=== PATIENT | male | born 1940 | race Caucasian/White ===

== ENCOUNTER → 2017-06-21 | Outpatient (CLI) | payer OTHER, MEDICARE | LOC: BMCIMAGING 09:48 | PROVIDERS: ATTEND Family Medicine | DX: M25.511 Pain in right shoulder (principal); M25.521 Pain in right elbow ==

== ENCOUNTER → 2017-06-30 | Outpatient (CLI) | payer OTHER, MEDICARE | LOC: FIMAGING 10:57 | PROVIDERS: ATTEND Orthopaedic Surgery Hand Surgery | DX: M75.121 Complete rotator cuff tear or rupture of right shoulder, not specified as traumatic (principal); M75.21 Bicipital tendinitis, right shoulder ==

== ENCOUNTER → 2018-05-29 | Outpatient (CLI) | payer OTHER, MEDICARE | LOC: BMCIMAGING 12:51 | PROVIDERS: ATTEND Emergency Medicine | DX: S90.852A Superficial foreign body, left foot, initial encounter (principal) ==

== ENCOUNTER 2018-07-30 10:27 | Emergency (ER) | payer OTHER, MEDICARE ==
--- NOTE | 2018-07-30 10:41 | EDPHY ---
H & P Time Seen by Provider: 07/30/18 10:37 HPI/ROS: CHIEF COMPLAINT: Abdominal pain and diarrhea HISTORY OF PRESENT ILLNESS: Patient was walking his dog today at 7:00 a.m. When he had sudden diarrhea, he actually did not make it to the bathroom in time. About 10 min later he developed lower abdominal pain on the left side. Moderate to severe, associated with nausea, no vomiting or fever. Not better or worse with anything. Symptoms moderate now. Went to urgent care and referred here. REVIEW OF SYSTEMS: Eye: no change in vision ENT: no sore throat Cardiac: no chest pain or syncope Pulmonary: no cough or SOB Abdomen: HPI Musculoskeletal: no back pain Skin: no rash Neuro: no headache Constitutional: no fever : no urinary symptoms A comprehensive 10 point review of systems is otherwise negative aside from elements mentioned in the history of present illness. PAST MEDICAL HISTORY: Includes hernia surgery Social history: Nonsmoker General Appearance: Alert and conversant, cooperative. Eyes: No scleral icterus. ENT, Mouth: Dry mucous membranes. Respiratory: Normal respiratory effort, breath sounds equal, lungs are clear to auscultation. Cardiovascular: Regular rate and rhythm. Gastrointestinal: Normal male , no hernia palpated, left lower quadrant abdominal tenderness to palpation. Neurological: Alert, face symmetric, normal motor and sensory in extremities. Skin: Warm and dry, no rashes. Musculoskeletal: No peripheral edema. Psychiatric: Not agitated. Emergency Department course/MDM: No recent foreign travel. Was last on oral antibiotics in February after he stepped on a thorn. Plan for IV fluid hydration for clinical dehydration, fentanyl 50 and Zofran 4, CT abdomen pelvis discussed and consented. 1223: Re-examined, results discussed, 0.5 Dilaudid and Toradol 15 and Percocet x1. 3 mm left distal UVJ stone with hydronephrosis consistent with renal colic causing the patient's symptoms. 1332: 2/10 pain, wants to be discharged which I think is reasonable. Smoking Status: Never smoked Constitutional: Initial Vital Signs Temperature (C) 37.0 C 07/30/18 10:30 Heart Rate 88 07/30/18 10:30 Respiratory Rate 20 07/30/18 10:30 Blood Pressure 144/100 H 07/30/18 10:30 O2 Sat (%) 92 07/30/18 10:30 O2 Delivery Mode Room Air Allergies/Adverse Reactions: penicillin G Allergy (Mild, Verified 05/04/11 06:19) Home Medications: Medication Instructions Recorded CLONAZEPAM 07/30/18 Ritalin 10mg (*) 07/30/18 oxyCODONE/APAP 5/325 [Percocet] 1 - 2 tab PO Q4-6PRN PRN #11 tab 07/30/18 Medical Decision Making - Diagnostics Imaging Results: Imaging Impressions Abdomen CT 07/30/18 10:59 Impression: 1. Nephrolithiasis with associated left-sided obstructive uropathy related to a 3 mm distal left ureteral calculus. 2. Cholelithiasis without secondary findings of acute cholecystitis. 3. See above report for additional findings. Results called and discussed with KRISTEN RUTLEDGE M.D. on 07/30/2018 at 11:56. - Data Points Laboratory Results: Laboratory Results 07/30/18 10:56 07/30/18 10:56 07/30/18 07/30/18 07/30/18 12:36 10:57 10:56 WBC RBC Hgb POC Hgb 16.3 gm/dL gm/dL (13.7-17.5) Hct POC Hct 48 % % (40-51) MCV MCH MCHC RDW Plt Count MPV Neut % (Auto) Lymph % (Auto) [place] % (Auto) Eos % (Auto) Baso % (Auto) Nucleat RBC Rel Count Absolute Neuts (auto) Absolute Lymphs (auto) Absolute Monos (auto) Absolute Eos (auto) Absolute Basos (auto) Absolute Nucleated RBC Immature Gran % Immature Gran # POC Sodium 142 mEq/L mEq/L (135-145) Sodium 138 mEq/L mEq/L (135-145) POC Potassium 3.4 mEq/L mEq/L (3.3-5.0) Potassium 3.6 mEq/L mEq/L (3.5-5.2) POC Chloride 105 mEq/L mEq/L (97-110) Chloride 106 mEq/L mEq/L (97-110) Carbon Dioxide 23 mEq/l mEq/l (22-31) POC Total CO2 23 mEq/L mEq/L (22-31) Anion Gap 9 mEq/L mEq/L (6-14) POC BUN 14 mg/dL mg/dL (7-23) BUN 15 mg/dL mg/dL (7-23) Creatinine 0.9 mg/dL mg/dL (0.7-1.3) POC Creatinine 0.9 mg/dL mg/dL (0.7-1.3) Estimated GFR > 60 Glucose 121 mg/dL H mg/dL (70-100) POC Glucose 127 mg/dL H mg/dL (70-100) Calcium 9.3 mg/dL mg/dL (8.5-10.4) Urine Color YELLOW Urine Appearance CLEAR Urine pH 5.0 (5.0-7.5) Ur Specific [place] > 1.035 H (1.002-1.030) Urine Protein NEGATIVE (NEGATIVE) Urine Ketones NEGATIVE (NEGATIVE) Urine Blood 2+ H (NEGATIVE) Urine Nitrate NEGATIVE (NEGATIVE) Urine Bilirubin NEGATIVE (NEGATIVE) Urine Urobilinogen NEGATIVE EU EU (0.2-1.0) Ur Leukocyte Esterase NEGATIVE (NEGATIVE) Urine RBC 10-15 /hpf H /hpf (0-3) Urine WBC 1-3 /hpf /hpf (0-3) Ur Epithelial Cells NONE SEEN /lpf /lpf (NONE-1+) Hyaline Casts 1-5 /lpf /lpf (0-1) Urine Mucus TRACE /lpf /lpf (NONE-1+) Urine Glucose NEGATIVE (NEGATIVE) 07/30/18 10:56 WBC 10.67 10^3/uL H 10^3/uL (3.80-9.50) RBC 5.16 10^6/uL 10^6/uL (4.40-6.38) Hgb 16.1 g/dL g/dL (13.7-17.5) POC Hgb Hct 45.8 % % (40.0-51.0) POC Hct MCV 88.8 fL fL (81.5-99.8) MCH 31.2 pg pg (27.9-34.1) MCHC 35.2 g/dL g/dL (32.4-36.7) RDW 13.9 % % (11.5-15.2) Plt Count 187 10^3/uL 10^3/uL (150-400) MPV 10.2 fL fL (8.7-11.7) Neut % (Auto) 85.0 % H % (39.3-74.2) Lymph % (Auto) 8.5 % L % (15.0-45.0) [place] % (Auto) 5.7 % % (4.5-13.0) Eos % (Auto) 0.1 % L % (0.6-7.6) Baso % (Auto) 0.3 % % (0.3-1.7) Nucleat RBC Rel Count 0.0 % % (0.0-0.2) Absolute Neuts (auto) 9.07 10^3/uL H 10^3/uL (1.70-6.50) Absolute Lymphs (auto) 0.91 10^3/uL L 10^3/uL (1.00-3.00) Absolute Monos (auto) 0.61 10^3/uL 10^3/uL (0.30-0.80) Absolute Eos (auto) 0.01 10^3/uL L 10^3/uL (0.03-0.40) Absolute Basos (auto) 0.03 10^3/uL 10^3/uL (0.02-0.10) Absolute Nucleated RBC 0.00 10^3/uL 10^3/uL (0-0.01) Immature Gran % 0.4 % % (0.0-1.1) Immature Gran # 0.04 10^3/uL 10^3/uL (0.00-0.10) POC Sodium Sodium POC Potassium Potassium POC Chloride Chloride Carbon Dioxide POC Total CO2 Anion Gap POC BUN BUN Creatinine POC Creatinine Estimated GFR Glucose POC Glucose Calcium Urine Color Urine Appearance Urine pH Ur Specific [place] Urine Protein Urine Ketones Urine Blood Urine Nitrate Urine Bilirubin Urine Urobilinogen Ur Leukocyte Esterase Urine RBC Urine WBC Ur Epithelial Cells Hyaline Casts Urine Mucus Urine Glucose Medications Given: Discontinued Medications Fentanyl (Sublimaze) 50 mcg IVP EDNOW ONE Stop: 07/30/18 10:53 Last Admin: 07/30/18 10:59 Dose: 50 mcg Hydromorphone HCl (Dilaudid) 0.5 mg IVP EDNOW ONE Stop: 07/30/18 12:24 Last Admin: 07/30/18 12:31 Dose: 0.5 mg Hydromorphone HCl (Dilaudid) 0.5 mg IVP EDNOW ONE Stop: 07/30/18 12:23 Last Admin: 07/30/18 12:31 Dose: Not Given Sodium Chloride (Ns) 1,000 mls @ 0 mls/hr IV EDNOW ONE; Wide Open PRN Reason: Protocol Stop: 07/30/18 10:53 Last Admin: 07/30/18 10:58 Dose: 1,000 mls Ketorolac Tromethamine (Toradol) 15 mg IVP EDNOW ONE Stop: 07/30/18 12:24 Last Admin: 07/30/18 12:30 Dose: Not Given Ketorolac Tromethamine (Toradol) 15 mg IVP EDNOW ONE Stop: 07/30/18 12:21 Last Admin: 07/30/18 12:30 Dose: 15 mg Ondansetron HCl (Zofran) 4 mg IVP EDNOW ONE Stop: 07/30/18 10:53 Last Admin: 07/30/18 10:59 Dose: 4 mg Oxycodone/Acetaminophen (Percocet 5/325) 1 tab PO EDNOW ONE Stop: 07/30/18 12:24 Last Admin: 07/30/18 12:30 Dose: 1 tab Oxycodone/Acetaminophen (Percocet 5/325) 1 tab PO EDNOW ONE Stop: 07/30/18 12:22 Last Admin: 07/30/18 12:31 Dose: Not Given Point of Care Test Results: Chemistry 07/30/18 10:57 POC Sodium 142 mEq/L mEq/L (135-145) POC Potassium 3.4 mEq/L mEq/L (3.3-5.0) POC Chloride 105 mEq/L mEq/L (97-110) POC Total CO2 23 mEq/L mEq/L (22-31) POC BUN 14 mg/dL mg/dL (7-23) POC Creatinine 0.9 mg/dL mg/dL (0.7-1.3) POC Glucose 127 mg/dL H mg/dL (70-100) ISTAT H&H 07/30/18 10:57 POC Hgb 16.3 gm/dL gm/dL (13.7-17.5) POC Hct 48 % % (40-51) Departure - Departure Disposition: Home, Routine, Self-Care Clinical Impression: Renal colic on left side Condition: Good Instructions: Renal Colic (ED) Referrals: MAMIE FERRER MD [Primary Care Provider] - As per Instructions Glen Mirza MD [Medical Doctor] - 3-4 days, if not improved Prescriptions: oxyCODONE/APAP 5/325 [Percocet] 1 - 2 tab PO Q4-6PRN PRN #11 tab PRN Reason: Pain
[2018-07-30] MEDS ORDERED: NS 1,000 ML IV ONE (10:52)
[2018-07-30] MEDS ORDERED: fentaNYL 100 MCG/2 ML INJ IVP ONE (10:52)
[2018-07-30] MEDS ORDERED: ONDANSETRON 4 MG/2 ML VIAL IVP ONE (10:52)
[2018-07-30 11:00] LABS: PLATELET COUNT 187 10^3/uL (150-400)
[2018-07-30] MEDS ORDERED: IOPAMIDOL (ISOVUE-300) 100 ML BTL ONE (11:12)
[2018-07-30] MEDS ORDERED: KETOROLAC 15 MG/1 ML SDV IVP ONE (12:20)
[2018-07-30] MEDS ORDERED: OXYCODONE/APAP 5/325 TAB PO ONE ×2 (12:21→12:23)
[2018-07-30] MEDS ORDERED: HYDROmorphONE/DILAUDID 2 MG/ML INJ IVP ONE ×2 (12:22→12:23)
[2018-07-30] MEDS ORDERED: KETOROLAC 30 MG/1 ML SDV IVP ONE (12:23)
[2018-07-30 13:35] VITALS: BP 130/96
== END 2018-07-30 13:40 | disposition home or self-care (01) ==
DX: N13.2 Hydronephrosis with renal and ureteral calculous obstruction (principal); E86.9 Volume depletion, unspecified
CPT/HCPCS: 74177; 96361; 96374; 96375; 99285; J1170; J1885; J2405; J3010; Q9967; 82435-PO; 82565-PO; 82947-PO; 84132-PO; 84295-PO; 84520-PO; 85014-ER